=== PATIENT | female | born 2000 | race Asian ===

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

== ENCOUNTER → 2022-01-13 07:13 | Outpatient (CLI) | payer OTHER, SELFPAY ==
[2022-01-13 09:50] LABS: Influenza A - CEPHEID Flu A NEGATIVE (NEGATIVE); Influenza B - CEPHEID Flu B NEGATIVE (NEGATIVE); Respiratory Syncytial Virus Negative (Negative)
[2022-01-13 09:51] LABS: COVID-19 CEPHEID 4-PLEX PCR Negative (Negative)
== END ==
PROVIDERS: PCP Internal Medicine; Visit Provider Physician Assistant
DX: R05.9 Cough, unspecified (principal)
CPT/HCPCS: 0241U

== ENCOUNTER → 2024-01-31 12:48 | Outpatient (CLI) | payer OTHER, SELFPAY ==
--- NOTE | 2024-01-31 12:52 | DI.US.S_ITS ---
PROCEDURE: US ABDOMEN COMPLETE INDICATIONS: abdominal bloating, irregular menstrual cycle TECHNIQUE: Real-time scanning was performed of the abdominal and retroperitoneal organs, with image documentation. COMPARISON: None. FINDINGS: Liver: Liver is normal in size and homogeneous in echotexture. Gallbladder: Sonolucent without evidence cholelithiasis, gallbladder wall thickening or pericholecystic fluid. No sonographic Bell sign. Biliary ducts: Intrahepatic bile ducts are non-dilated. Extrahepatic bile duct caliber measures 2.4 mm. Normal is 6-7 mm or less in diameter, or 10 mm or less post-cholecystectomy. Pancreas: Visualized portions of the pancreas are sonographically normal. Spleen: Spleen is normal in size and homogeneous in echotexture. Kidneys: Kidneys are normal in size and echotexture. Right kidney measures 10.8 cm long; left kidney measures 12.0 cm long. No hydronephrosis or nephrolithiasis. No solid masses. Aorta: Visualized aorta is normal in caliber at less than 3 cm. Iliacs: Proximal common iliac arteries are normal in caliber at less than 2.5 cm. IVC: Intrahepatic inferior vena cava is patent. Miscellaneous: No free abdominal fluid. IMPRESSION: Unremarkable ultrasound of the abdomen Approved by: Corey Trujillo M.D. on 01/31/2024 at 18:05
--- NOTE | 2024-01-31 12:52 | DI.US.S_ITS ---
PROCEDURE: US PELVIC COMPLETE INDICATIONS: abdominal bloating, irregular menstrual cycle TECHNIQUE: Real-time scanning was performed of the pelvic organs, with image documentation. Additional endovaginal scanning was necessary due to incomplete visualization of the adnexal and endometrial structures by transabdominal scanning. COMPARISON: None. FINDINGS: Uterus: Uterus is anteverted and normal in size at 6.9 x 2.8 x 3.9 cm. The myometrium is homogeneous. The endometrium measures 2.1 mm combined thickness. Small amount of fluid noted within the endocervical canal Ovaries: The right ovary measures 4.0 x 2.6 x 3.4 cm, with a calculated ovarian volume of 18.9 cc. The left ovary measures 3.8 x 1.8 x 2.8 cm, with a calculated ovarian volume of 10.3 cc. The ovaries have a normal sonographic appearance. Greater than 12 follicles noted in both ovaries No adnexal masses are seen. Other: No pathologic free abdominal or pelvic fluid. IMPRESSION: Greater than 12 follicles noted in both ovaries. This finding has been correlated with polycystic ovarian syndrome in the proper clinical setting. Approved by: Corey Trujillo M.D. on 01/31/2024 at 18:08
== END ==
PROVIDERS: PCP Internal Medicine; Referring Provider Internal Medicine; Visit Provider Internal Medicine
DX: R14.0 Abdominal distension (gaseous) (principal); N92.6 Irregular menstruation, unspecified; R74.8 Abnormal levels of other serum enzymes
CPT/HCPCS: 76700; 76856

== ENCOUNTER 2024-04-15 07:09 | Emergency (ER) | payer OTHER, SELFPAY ==
[2024-04-15 07:27] VITALS: BP 110/60; PULSE 71; RESP 20; TEMP 37; O2SAT 100; BMI 19.7
--- NOTE | 2024-04-15 07:29 | ED_ITS ---
HPI - Abdominal Pain <Dominick Dasilva DO - Last Filed: 04/15/24 07:31> General Chief Complaint: Abdominal Pain Stated Complaint: Really bad Stomach pain Time Seen by Provider: 04/15/24 07:22 History of Present Illness HPI narrative: Patient is a 23-year-old female with a past medical history of PCOS on metformin and spironolactone, comes into the ED from home for evaluation of abdominal pain, states that she woke up from the pain, describes as aching, nothing making it better or worse, she states that she did move her bowels prior to arrival but the pain persisted, states that it is associated with nausea but no vomiting, she states that given severity of the symptoms decided come into the ED for further evaluation treatment. She denies any other symptoms such as headache visual disturbances chest pain fever chills or any other GI/ symptoms. Denies any history of surgeries to the abdomen. No known sick contacts no recent travel not on any blood thinner Related Data Previous Rx's Medication Instructions Recorded amoxicillin 875 mg-potassium 1 tab PO BID #14 tabs 04/15/24 clavulanate 125 mg tablet Allergies Allergy/AdvReac Type Severity Reaction Status Date / Time No Known Drug Allergies Allergy Unverified 01/13/22 07:16 Review of Systems <Dominick Dasilva DO - Last Filed: 04/15/24 07:31> Review of Systems Narrative: General: Denies fever, chills, weight loss HEENT: Denies headache, eye drainage, eye irritation, head trauma, sore throat, voice change Cardiovascular: Denies any chest pain, palpitations, shortness of breath, tachycardia Respiratory: Denies any shortness of breath, cough, wheeze, stridor GI/: Positive abdominal pain, nausea, denies vomiting, diarrhea, bright red blood per rectum, melanotic stools, urinary frequency, urinary retention, dysuria, hematuria MSK: Denies any joint pain, muscle pains, swelling Skin: Denies any rashes, lesions, discoloration Neuro: Denies any headache, lightheadedness, dizziness, fainting, weakness Psych: Denies SI/HI Patient History <Dominick Dasilva DO - Last Filed: 04/15/24 07:31> Medical History (Updated 04/15/24 @ 09:38 by Sonja Manley DO) Viral conjunctivitis of right eye Viral URI with cough Social History Smoking Status: Never smoker Smoking Status: Never smoker Exam <Dominick Dasilva DO - Last Filed: 04/15/24 07:31> Narrative Exam Narrative: General: Cooperative, comfortable, well-developed, not in acute distress HEENT: Normocephalic, atraumatic, PERRLA, normal sclera, eyelids normal, Neck: Active full range of motion, atraumatic Chest: Normal to inspection, negative crepitus, no overlying erythema ecchymosis Respiratory: Normal respiratory effort, not in acute respiratory distress, clear to auscultation bilaterally negative cough, wheeze, tachypnea, rhonchi, rales Cardiology: Regular rate rhythm negative gallop, murmur, rubs GI/: Normal to inspection, soft, nonrigid, mild tenderness to palpation lower abdomen, exam deferred MSK: Full range of active range of motion of all 4 extremities, atraumatic Skin: No rashes lesions noted Neuro: Alert awake oriented x3, moves all 4 extremities spontaneously, cranial nerves intact, able to answer all questions appropriately follows commands appropriately Psych: Cooperative, negative suicidal or homicidal ideations Initial Vital Signs Initial Vital Signs: Vital Signs Temperature 98.6 F 04/15/24 07:27 Pulse Rate 71 04/15/24 07:27 Respiratory Rate 20 04/15/24 07:27 Blood Pressure 110/60 04/15/24 07:27 Pulse Oximetry 100 04/15/24 07:27 Oxygen Delivery Method Room Air 04/15/24 07:27 <Sonja Manley, DO - Last Filed: 04/15/24 14:03> Initial Vital Signs Initial Vital Signs: Vital Signs Temperature 98.6 F 04/15/24 07:27 Pulse Rate 71 04/15/24 07:27 Respiratory Rate 20 04/15/24 07:27 Blood Pressure 110/60 04/15/24 07:27 Pulse Oximetry 100 04/15/24 07:27 Oxygen Delivery Method Room Air 04/15/24 07:27 Course <Dominick Dasilva DO - Last Filed: 04/15/24 07:31> Orders Ordered: ED Orders 04/15/24 07:28 CT abdomen pelvis w con Stat 04/15/24 07:59 Complete Blood Count AUTO DIFF Stat Comprehensive Metabolic Panel Stat Lipase Stat MAG [Magnesium] Stat Test Serum,Qual Stat Discontinued Medications Sodium Chloride (Normal Saline 0.9%) 1,000 mls @ 1,000 mls/hr IV BOLUS ONE Stop: 04/15/24 08:27 Last Infusion: 04/15/24 09:52 Dose: Infused Documented By: Admin: 04/15/24 08:08 Dose: 1,000 mls/hr Documented By: ASIM Ketorolac Tromethamine (Ketorolac 30 Mg/Ml Vial) 15 mg IV NOW ONE Stop: 04/15/24 07:29 Last Admin: 04/15/24 08:07 Dose: 15 mg Documented By: ASIM Ondansetron HCl (Ondansetron 4 Mg/2 Ml Inj) 4 mg IV NOW ONE Stop: 04/15/24 07:29 Vital Signs Vital signs: Vital Signs - 8 hr 04/15/24 07:27 04/15/24 09:53 Temperature 98.6 F 98.6 F Pulse Rate 71 70 Respiratory Rate 20 20 Blood Pressure 110/60 114/64 Pulse Oximetry 100 100 Oxygen Delivery Method Room Air Room Air <Sonja Manley, - Last Filed: 04/15/24 14:03> Orders Ordered: ED Orders 04/15/24 07:28 CT abdomen pelvis w con Stat 04/15/24 07:59 Complete Blood Count AUTO DIFF Stat Comprehensive Metabolic Panel Stat Lipase Stat MAG [Magnesium] Stat Test Serum,Qual Stat Discontinued Medications Sodium Chloride (Normal Saline 0.9%) 1,000 mls @ 1,000 mls/hr IV BOLUS ONE Stop: 04/15/24 08:27 Last Infusion: 04/15/24 09:52 Dose: Infused Documented By: Admin: 04/15/24 08:08 Dose: 1,000 mls/hr Documented By: ASIM Ketorolac Tromethamine (Ketorolac 30 Mg/Ml Vial) 15 mg IV NOW ONE Stop: 04/15/24 07:29 Last Admin: 04/15/24 08:07 Dose: 15 mg Documented By: ASIM Ondansetron HCl (Ondansetron 4 Mg/2 Ml Inj) 4 mg IV NOW ONE Stop: 04/15/24 07:29 Vital Signs Vital signs: Vital Signs - 8 hr 04/15/24 07:27 04/15/24 09:53 Temperature 98.6 F 98.6 F Pulse Rate 71 70 Respiratory Rate 20 20 Blood Pressure 110/60 114/64 Pulse Oximetry 100 100 Oxygen Delivery Method Room Air Room Air MDM - Abdominal Pain <Dominick Dasilva DO - Last Filed: 04/15/24 07:31> Differential Diagnosis Differential diagnosis: Likely abdominal pain, constipation, diverticulitis, pancreatitis and small bowel obstruction Lab Data 04/15/24 07:59 04/15/24 07:59 Labs: Lab Results 04/15/24 Range/Units 07:59 WBC 5.8 (4.5-11.0) X10^3/uL RBC 4.22 (4.0-5.2) X10^6/uL Hgb 12.9 (12.0-16.0) g/dL Hct 38.5 (36-46) % MCV 91.1 (80-100) fL MCH 30.6 (26-34) PG MCHC 33.6 (30-36) % RDW 14.4 (11.6-14.8) % Plt Count 239 (150-400) X10^3/uL Neut % (Auto) 58.6 (50-75) % Lymph % (Auto) 34.6 (25-40) % [place] % (Auto) 4.3 (3-14) % Eos % (Auto) 2.0 (2-4) % Baso % (Auto) 0.5 (0-2) % Neut # (Auto) 3400 (0931-3196) /uL Lymph # (Auto) 2000 (3594-5469) /uL [place] # (Auto) 300 (0-900) /uL Eos # (Auto) 100 (0-450) /uL Baso # (Auto) 0 (0-100) /uL Sodium 139 (137-145) mmol/L Potassium 3.6 (3.4-5.1) mmol/L Chloride 104 (98-107) mmol/L Carbon Dioxide 22 (22-32) mmol/L BUN 10 (7-17) mg/dL Creatinine 0.68 (0.52-1.04) mg/dL Estimated GFR > 60 (>60) mL/min BUN/Creatinine Ratio 14.7 (6-22) Glucose 112 H (70-100) mg/dL Calcium 9.5 (8.4-10.2) mg/dL Magnesium 1.7 (1.6-2.3) mg/dL Total Bilirubin 0.6 (0.2-1.3) mg/dL AST 35 (14-36) IU/L ALT 23 (<35) IU/L Alkaline Phosphatase 40 (38-126) U/L Total Protein 7.7 (6.3-8.2) g/dL Albumin 5.0 (3.5-5.0) g/dL Globulin 2.7 (1.7-4.1) g/dL Albumin/Globulin Ratio 1.9 (1.0-2.8) Lipase 126 (23-300) U/L Serum , Qual Negative (Negative) Point of care testing: Urine Dip Bedside Urine Glucose Negative Bedside Urine Bilirubin + 1 Bedside Urine Ketone - Negative Urine Specific [place] 1.020 Bedside Urine Occult Blood +/- Bedside Urine pH 6.0 Bedside Urine Protein ++ 100 Bedside Urine Urobilinogen - Negative Bedside Urine Nitrite - Negative Bedside Urine Leukocytes - Negative Esterase MDM Narrative Medical decision making narrative: 23-year-old female history of PCOS on metformin and spironolactone for this, comes into the ED from home for evaluation of lower abdominal cramping pain nausea with no vomiting states it woke her up a proximally 1 hour prior to arrival. States that she went to sleep feeling fine, states that she did have a bowel movement without improvement of her symptoms so therefore she decided come into the ED for further evaluation treatment. <Sonja Manley, DO - Last Filed: 04/15/24 14:03> Lab Data Labs: Lab Results 04/15/24 Range/Units 07:59 WBC 5.8 (4.5-11.0) X10^3/uL RBC 4.22 (4.0-5.2) X10^6/uL Hgb 12.9 (12.0-16.0) g/dL Hct 38.5 (36-46) % MCV 91.1 (80-100) fL MCH 30.6 (26-34) PG MCHC 33.6 (30-36) % RDW 14.4 (11.6-14.8) % Plt Count 239 (150-400) X10^3/uL Neut % (Auto) 58.6 (50-75) % Lymph % (Auto) 34.6 (25-40) % [place] % (Auto) 4.3 (3-14) % Eos % (Auto) 2.0 (2-4) % Baso % (Auto) 0.5 (0-2) % Neut # (Auto) 3400 (1805-8192) /uL Lymph # (Auto) 2000 (3953-8513) /uL [place] # (Auto) 300 (0-900) /uL Eos # (Auto) 100 (0-450) /uL Baso # (Auto) 0 (0-100) /uL Sodium 139 (137-145) mmol/L Potassium 3.6 (3.4-5.1) mmol/L Chloride 104 (98-107) mmol/L Carbon Dioxide 22 (22-32) mmol/L BUN 10 (7-17) mg/dL Creatinine 0.68 (0.52-1.04) mg/dL Estimated GFR > 60 (>60) mL/min BUN/Creatinine Ratio 14.7 (6-22) Glucose 112 H (70-100) mg/dL Calcium 9.5 (8.4-10.2) mg/dL Magnesium 1.7 (1.6-2.3) mg/dL Total Bilirubin 0.6 (0.2-1.3) mg/dL AST 35 (14-36) IU/L ALT 23 (<35) IU/L Alkaline Phosphatase 40 (38-126) U/L Total Protein 7.7 (6.3-8.2) g/dL Albumin 5.0 (3.5-5.0) g/dL Globulin 2.7 (1.7-4.1) g/dL Albumin/Globulin Ratio 1.9 (1.0-2.8) Lipase 126 (23-300) U/L Serum , Qual Negative (Negative) Point of care testing: Urine Dip Bedside Urine Glucose Negative Bedside Urine Bilirubin + 1 Bedside Urine Ketone - Negative Urine Specific [place] 1.020 Bedside Urine Occult Blood +/- Bedside Urine pH 6.0 Bedside Urine Protein ++ 100 Bedside Urine Urobilinogen - Negative Bedside Urine Nitrite - Negative Bedside Urine Leukocytes - Negative Esterase Imaging Data CT scan - abdomen/pelvis: Radiologist's Impression: PROCEDURE: CT ABDOMEN PELVIS W CON INDICATIONS: lower abd pain TECHNIQUE: After the administration of intravenous contrast, axial sections acquired from the lung bases to the pubic symphysis. Coronal and sagittal reformats were performed. For radiation dose reduction, the following was used: automated exposure control, adjustment of mA and/or kV according to patient size. COMPARISON: [facility], , US ABDOMEN COMPLETE, 01/31/2024, 13:02. [facility], , US PELVIC COMPLETE, 01/31/2024, 13:36. FINDINGS: Image quality: Diagnostic. Lower Chest: No significant findings. ABDOMEN: Liver: No solid mass. Gallbladder: No radiopaque gallstones or wall thickening. Biliary ducts: No biliary dilation. Pancreas: No ductal dilation. Spleen: Size is within normal limits. Adrenal Glands: No adrenal nodules. Kidneys and Ureters: No hydronephrosis. No solid mass. No complex renal cystic lesion which requires follow up. Stomach and Bowel: There is no bowel obstruction. No gross gastric or small bowel wall thickening. Mild fecal stasis in the colon is seen. There is suggestion of ascending colon wall thickening and edema extending to proximal to mid transverse colon. There is also suggestion of descending wall and sigmoid colon wall thickening. Appendix is not definitively identified. No definite focal inflammatory changes are seen in right lower quadrant. No abscess collection. Peritoneum: No abnormal intraperitoneal fluid. No free air. Ventral Wall: No significant ventral hernia. Abdominal Nodes: No retroperitoneal or mesenteric adenopathy by size criteria. Vessels: Aorta and inferior vena cava are normal in size. PELVIS: Pelvic Organs: There is suggestion of a 3.2 x 3.2 cm right ovarian cyst.. Bladder: No bladder wall thickening, accounting for underdistention. Pelvic Nodes: No enlarged lymph nodes. Miscellaneous: No inguinal hernias are seen. Bones: No aggressive osseous abnormality. IMPRESSION: 1. Finding is concerning for infectious or inflammatory colitis involving ascending colon, proximal to mid sigmoid colon, descending colon and sigmoid colon. No abscess collection. No free fluid or free air. 2. 3.2 cm right ovarian cyst. Normal appearing uterus. Dictated by: Aubrey Fernandez M.D. on 04/15/2024 at 8:57 MDM Narrative Medical decision making narrative: 23-year-old female history of PCOS on metformin and spironolactone for this, comes into the ED from home for evaluation of lower abdominal cramping pain nausea with no vomiting states it woke her up a proximally 1 hour prior to arrival. States that she went to sleep feeling fine, states that she did have a bowel movement without improvement of her symptoms so therefore she decided come into the ED for further evaluation treatment. Dr. Manley-received sign-out from , seen evaluated patient myself. Reports that she woke suddenly with suprapubic pain. She felt nauseous was sweaty. Pain is still a little bit more in the right than the left. History of PCOS. Awaiting for blood work and CT. Not wanting anything for pain or nausea at this time. Blood work has been reviewed she has no leukocytosis WBC is 5.8 hemoglobin 12.9 hematocrit 38.5 CMP does not show any electrolyte abnormality normal creatinine at 0.68 Liver enzymes bilirubin and lipase within normal limits CT scan shows infectious versus inflammatory process and ascending colon Patient has no leukocytosis had questionable fever she was tender. Patient was feeling better now. Discussion with patient and father in regards to treatment. We will go ahead and prescribe antibiotics she can hold off for a day or 2 if pain continues and start them. Also recommended outpatient colonoscopy. Patient reports that she did have bloody stool about a week ago. Has been reports that mother had abdominal pain and discomfort and abnormal bowel movement about a month ago. Discharge Plan Departure Patient Disposition: Home Clinical Impression: Colitis Instructions: DI for Colitis Activity Restrictions/Additional Instructions: *You have been diagnosed with colitis *What to do: At this time please stay hydrated I would avoid red drinks can be confused with blood. Recommend something with electrolytes and sugar. Juice Pedialyte Gatorade of your choice. May eat as tolerated. Expect to have pain come and go. Hold off antibiotics for a day or 2 however pain continues please start them. I also recommend outpatient colonoscopy once this has settled to be sure you do not have inflammatory bowel disease such as Crohn's disease or ulcerative colitis *Continue to take medications as directed Augmentin 875 mg twice a day for 7 days Tylenol Motrin as needed for pain *Follow up with your primary care provider in 2-3 days or call [phone] *Return to ER if you should have increasing abdominal pain fever bloody stool or any new, worsening or concerning symptoms Prescriptions: New amoxicillin-pot clavulanate 875-125 mg tablet 1 tab PO BID Qty: 14 0RF Referrals: Xiomy Posada ARNP [Primary Care Provider] - Stand Alone Forms: Patient Portal/API/Survey
[2024-04-15] MEDS: KETOROLAC 30 MG/ML VIAL 15 MG IV (08:07)
[2024-04-15] MEDS: SODIUM CHLORIDE 0.9% 1,000 ML 1000 ML IV (08:08)
[2024-04-15 08:09] LABS: Add Manual Diff / Slide Review NO; Basophils Absolute Auto 0 /uL (0-100); Basophils Percent Auto 0.5 % (0-2); Eosinophils Absolute Auto 100 /uL (0-450); Hematocrit 38.5 % (36-46); Hemoglobin 12.9 g/dL (12.0-16.0); Lymphocytes Absolute Auto 2000 /uL (1100-4500); Lymphocytes Percent Auto 34.6 % (25-40); Mean Corpuscular HGB Conc 33.6 % (30-36); Mean Corpuscular Hemoglobin 30.6 PG (26-34); Mean Corpuscular Volume 91.1 fL (80-100); Monocytes Absolute Auto 300 /uL (0-900); Monocytes Percent Auto 4.3 % (3-14); Neutrophils Absolute Auto 3400 /uL (1500-7000); Neutrophils Percent Auto 58.6 % (50-75); Platelet Count 239 X10^3/uL (150-400); Red Blood Cell Count 4.22 X10^6/uL (4.0-5.2); Red Cell Distribution Width 14.4 % (11.6-14.8); White Blood Cell Count 5.8 X10^3/uL (4.5-11.0)
[2024-04-15 08:27] LABS: Alanine Aminotransferase 23 IU/L (<35); Albumin Globulin Ratio 1.9 (1.0-2.8); Alkaline Phosphatase 40 U/L (38-126); Aspartate Aminotransferase 35 IU/L (14-36); BUN Creatinine Ratio 14.7 (6-22); Bilirubin Total 0.6 mg/dL (0.2-1.3); Blood Urea Nitrogen 10 mg/dL (7-17); Calcium 9.5 mg/dL (8.4-10.2); Carbon Dioxide 22 mmol/L (22-32); Chloride 104 mmol/L (98-107); Estimated Glomerular Filt Rate > 60 mL/min (>60); Globulin 2.7 g/dL (1.7-4.1); Glucose 112 mg/dL (70-100); HEMOLYSIS 15 (0-50); Lipase 126 U/L (23-300); Magnesium 1.7 mg/dL (1.6-2.3); Potassium 3.6 mmol/L (3.4-5.1); Sodium 139 mmol/L (137-145); Total Protein 7.7 g/dL (6.3-8.2)
[2024-04-15 08:36] LABS: Pregnancy Test Serum,Qual Negative (Negative)
[2024-04-15 09:53] VITALS: BP 114/64; PULSE 70; RESP 20; TEMP 37; O2SAT 100
== END 2024-04-15 09:57 | disposition home or self-care (01) ==
PROVIDERS: Student in an Organized Health Care Education/Training Program; Emergency Provider Emergency Medicine; PCP Internal Medicine
DX: K52.9 Noninfective gastroenteritis and colitis, unspecified (principal); R11.0 Nausea
CPT/HCPCS: 74177; 80053; 81003; 83690; 83735; 84703; 85025; 96361; 96374; 99284; J1885; Q9967